=== PATIENT | female | born 2000 | race Hispanic/Latino ===

== ENCOUNTER 2022-05-15 18:14 | Emergency (ER) | payer OTHER ==
[2022-05-15] MEDS ORDERED: ACETAMINOPHEN 500 MG TAB ONE (19:08)
--- NOTE | 2022-05-15 20:02 | RAD REPORT ---
EXAM DESCRIPTION: US - Transvaginal OB - 05/15/2022 7:49 pm CLINICAL HISTORY: with abdominal pain COMPARISON: None. FINDINGS: The uterus measures 9 x 4 x 5 centimeters. A gestational sac is present within the uterine body endometrium measuring 1 centimeter. Within this is a yolk sac 6 millimeter echogenic structure is equivocal for a pole. Cardiac activity was not demonstrated . Neither ovary is visualized secondary to overlying bowel gas. The right and left adnexa unremarkable No significant free fluid IMPRESSION: Intrauterine with an estimated gestational age 6 weeks 0 days AMBER 01/08/2023 The gestational sac is somewhat low within the uterus as it is within the uterine body. There is an e quivocal pole. Cardiac activity not seen. This may represent an incomplete . It is still possible that this represents a viable in which cardiac activity not seen secon divya to the early gestation It is recommended that the patient have serial beta HCG levels as well as a follow up endovaginal son ogram in 1 week for re-evaluation
[2022-05-15 20:39] LABS: Absolute Lymphocytes (CBC) 1.9 K/uL (0.7-4.9); Hematocrit 39.8 % (36.0-45.0); Lymphocytes % 18.4 % (15.3-44.8); MCV 84.7 fL (80-100); MPV 7.7 fL (7.6-11.3); RBC Red Blood Cell Count 4.69 M/uL (3.86-4.86)
[2022-05-15 21:06] LABS: Potassium 3.3 mmol/L (3.5-5.1)
[2022-05-15 21:28] LABS: Urine Blood 3+ (Negative); Urine Glucose Negative (Negative); Urine Protein 1+ (Negative); Urine Specific Gravity >=1.030 (1.005-1.030)
[2022-05-15] MEDS ORDERED: POTASSIUM 25 MEQ EFFERV TAB ONE (22:26)
--- NOTE | 2022-05-15 22:31 | EDPHYS ---
Physician Documentation [facility] Name: Niki Casillas Age: 21 yrs Sex: Female : 2000 Arrival Date: 05/15/2022 Time: 18:16 Bed 30 Private MD: ED Physician Jesus Arana HPI: 05/15 18:40 This 21 yrs old Female presents to ER via Ambulatory with complaints of cp Vaginal Bleeding, + Preg <12wks. 18:40 The patient presents to the emergency department with vaginal bleeding, that is light, cp with no clots. 18:40 The estimated gestational age is 8 weeks. course: care: none, cp Leakage of Fluid: none appreciated, Ultrasound: the patient has not had an ultrasound. Associated signs and symptoms: Pertinent negatives: abdominal pain, fever, nausea, ruptured membranes, vomiting. 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 - Social history:: Smoking status: Patient denies any tobacco usage or history of. ROS: 18:45 Constitutional: Negative for body aches, chills, fever, poor PO intake. cp 18:45 Eyes: Negative for injury, pain, redness, and discharge. cp 18:45 ENT: Negative for drainage from ear(s), ear pain, sore throat, difficulty swallowing, difficulty handling secretions. 18:45 Cardiovascular: Negative for chest pain, edema, palpitations. 18:45 Respiratory: Negative for cough, shortness of breath, wheezing. 18:45 Abdomen/GI: Negative for abdominal pain, nausea, vomiting, and diarrhea. 18:45 Back: Negative for pain at rest, pain with movement. 18:45 : Positive for vaginal bleeding, Negative for urinary symptoms, pelvic pain, flank pain. 18:45 Neuro: Negative for altered mental status, headache, weakness. 18:45 All other systems are negative. Exam: 18:50 Constitutional: The patient appears in no acute distress, alert, awake, comfortable, cp non-toxic, well developed, well nourished. 18:50 Head/Face: Normocephalic, atraumatic. cp 18:50 Eyes: Periorbital structures: appear normal, Conjunctiva: normal, no exudate, no injection, Sclera: no appreciated abnormality, Lids and lashes: appear normal, bilaterally. 18:50 ENT: External ear(s): are unremarkable, Nose: is normal, Mouth: is normal, Posterior pharynx: Airway: no evidence of obstruction, patent. 18:50 Chest/axilla: Inspection: normal. 18:50 Cardiovascular: Rate: normal, Rhythm: regular. 18:50 Respiratory: the patient does not display signs of respiratory distress, Respirations: normal, no use of accessory muscles, no retractions, labored breathing, is not present, Breath sounds: are clear throughout, no decreased breath sounds, no stridor, no wheezing. 18:50 Abdomen/GI: Inspection: abdomen appears normal, Palpation: abdomen is soft and non-tender, in all quadrants. 18:50 Back: pain, is absent, ROM is normal. 18:50 Neuro: Orientation: to person, place \T\ time. Mentation: is normal, Motor: moves all fours, strength is normal, Gait: is steady, at a normal pace, without difficulty. Vital Signs: 18:20 BP 130 / 83; Pulse 91; Resp 16; Temp 98; Pulse Ox 100% on R/A; Weight 79.38 kg; Height hb 5 ft. 4 in. (162.56 cm); Pain 3/10; 22:35 BP 128 / 78; Pulse 82; Resp 18; Pulse Ox 99% ; kb3 18:20 Body Mass Index 30.04 (79.38 kg, 162.56 cm) hb MDM: 18:31 Patient medically screened. cp 22:30 Data reviewed: vital signs, nurses notes, lab test result(s), radiologic studies, cp ultrasound. 22:30 Counseling: I had a detailed discussion with the patient and/or guardian regarding: the cp historical points, exam findings, and any diagnostic results supporting the discharge/admit diagnosis, lab results, radiology results, the need for outpatient follow up, for definitive care, an OB/Gyne specialist, to return to the emergency department if symptoms worsen or persist or if there are any questions or concerns that arise at home. ED course: VSS. Discussed today's lab and US results indicating early 6 week vs early miscarriage. Patient has appt with OB Tuesday and can repeat beta-hcg. Recommend pelvic rest, return to ED worsening bleeding, pain. 05/15 18:32 Order name: Abo/rh Typing; Complete Time: 21:55 05/15 21:55 Interpretation: ABO/RH TYPE <p>O POSITIVE</p>; Reviewed. 05/15 18:32 Order name: Basic Metabolic Panel; Complete Time: 21:55 05/15 21:55 Interpretation: Normal except: K 3.3. 05/15 18:32 Order name: CBC with Diff; Complete Time: 21:01 05/15 21:01 Interpretation: Reviewed. 05/15 18:32 Order name: Quantitative Hcg; Complete Time: 21:55 05/15 21:55 Interpretation: Abnormal: HCGQ 7836. 05/15 21:28 Order name: Urine Dipstick-Ancillary; Complete Time: 21:55 EDGA 05/15 18:32 Order name: IV Saline Lock; Complete Time: 20:22 05/15 18:32 Order name: Labs collected and sent; Complete Time: 20:22 05/15 18:32 Order name: NPO; Complete Time: 20:22 05/15 18:32 Order name: Urine Dipstick-Ancillary (obtain specimen); Complete Time: 21:33 05/15 18:32 Order name: Urine Test (obtain specimen); Complete Time: 21:33 05/15 18:32 Order name: US Transvaginal Ob; Complete Time: 20:16 05/15 20:17 Interpretation: Report reviewed. cp Administered Medications: 18:55 Drug: Tylenol 1000 mg Route: PO; kb3 20:00 Follow up: Response: No adverse reaction; Pain is decreased kb3 22:20 Drug: Potassium Effervescent Tablet 25 mEq Route: PO; kb3 22:45 Follow up: Response: No adverse reaction kb3 Disposition Summary: 05/15/22 22:30 Discharge Ordered Location: Home cp Problem: new cp Symptoms: have improved cp Condition: Stable cp Diagnosis - Threatened cp Followup: cp - With: Private Physician - When: 48 Hours - Reason: Repeat Beta-HCG (48 Hours) Discharge Instructions: - Discharge Summary Sheet cp - Care cp - Threatened Miscarriage cp - Vaginal Bleeding During , First Trimester cp - Activity Restriction During cp Forms: - Medication Reconciliation Form cp - Thank You Letter cp - Antibiotic Education cp - Prescription Opioid Use cp Signatures: Dispatcher [employer] EDMS Jesus Hernandez PA PA cp Baxter, Heather, RN RN Trish Julian RN RN kb3
--- NOTE | 2022-05-15 22:31 | ER ---
Nurse's Notes [facility] Name: Niki Casillas Age: 21 yrs Sex: Female : 2000 Arrival Date: 05/15/2022 Time: 18:16 Bed 30 Private MD: Diagnosis: Threatened Presentation: 05/15 18:20 Chief complaint: Spotty bright red vaginal bleeding x 2 days. Pt is 8 weeks , hb LMP 02/10. Coronavirus screen: At this time, the client does not indicate any symptoms associated with coronavirus-19. Ebola Screen: No symptoms or risks identified at this time. Risk Assessment: Do you want to hurt yourself or someone else? Patient reports no desire to harm self or others. Onset of symptoms was May 14, 2022. 18:20 Method Of Arrival: Ambulatory hb 18:20 Acuity: CLARISSE 3 hb 22:21 Initial Sepsis Screen: Does the patient meet any 2 criteria? No. Patient's initial kb3 sepsis screen is negative. Does the patient have a suspected source of infection? No. Patient's initial sepsis screen is negative. Triage Assessment: 22:21 General: Appears in no apparent distress. Behavior is calm, cooperative. 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 - Social history:: Smoking status: Patient denies any tobacco usage or history of. Screenin:45 Abuse screen: Denies threats or abuse. Denies injuries from another. Nutritional kb3 screening: No deficits noted. Tuberculosis screening: No symptoms or risk factors identified. Fall Risk None identified. Assessment: 18:45 Obstetrical Assessment: General assessment: awake and alert, anxious, skin warm and kb3 dry, respirations even and unlabored. General: Appears in no apparent distress. Behavior is Received care of pt from triage. PT is AAO x4. Reports bright red bleeding since yesterday with mild lower abdominal cramping. PT states she has been having cramping since she found out she was but the bleeding is new. Reports one episode of scant spotting over Labor Day weekend but nothing since then. A0. 18:45 Pain: Complains of pain in right lower quadrant and left lower quadrant Pain does not kb3 radiate. Pain currently is 2 out of 10 on a pain scale. Quality of pain is described as crampy. : No deficits noted. No signs and/or symptoms were reported regarding the genitourinary system. 19:20 General: US Tech at bedside. kb3 Vital Signs: 18:20 BP 130 / 83; Pulse 91; Resp 16; Temp 98; Pulse Ox 100% on R/A; Weight 79.38 kg; Height hb 5 ft. 4 in. (162.56 cm); Pain 3/10; 22:35 BP 128 / 78; Pulse 82; Resp 18; Pulse Ox 99% ; kb3 18:20 Body Mass Index 30.04 (79.38 kg, 162.56 cm) hb Vitals: 22:22 Heart Tones No cardiac activity per US. kb3 ED Course: 18:16 Patient arrived in ED. as 18:22 Triage completed. hb 18:22 Arm band placed on. hb 18:26 Jesus Hernandez PA is PHCP. cp 18:26 Josephine Loaiza MD is Attending Physician. cp 18:34 Trish Julian, RN is Primary Nurse. kb3 18:45 Patient has correct armband on for positive identification. Placed in gown. Bed in low kb3 position. Call light in reach. Side rails up X 1. Warm blanket given. 18:45 No provider procedures requiring assistance completed. kb3 19:50 US Transvaginal Ob In Process Unspecified. EDMS 20:20 Inserted saline lock: 22 gauge in right antecubital area, using aseptic technique. hb Blood collected. 20:23 Jesus Arana MD is Attending Physician. cp 22:44 IV discontinued, intact, bleeding controlled, No redness/swelling at site. kb3 Administered Medications: 18:55 Drug: Tylenol 1000 mg Route: PO; kb3 20:00 Follow up: Response: No adverse reaction; Pain is decreased kb3 22:20 Drug: Potassium Effervescent Tablet 25 mEq Route: PO; kb3 22:45 Follow up: Response: No adverse reaction kb3 Medication: 18:45 VIS not applicable for this client. kb3 Outcome: 22:30 Discharge ordered by . scott 22:44 Discharged to home ambulatory. kb3 22:44 Condition: stable 22:44 Discharge instructions given to patient, Instructed on discharge instructions, follow up and referral plans. Demonstrated understanding of instructions, follow-up care. 22:46 Patient left the ED. kb3 Signatures: Dispatcher [employer] EDCarrie Smalls Corey, PA PA cp Baxter, Heather, RN RN Trish Garcia, RN RN kb3
[2022-05-17 09:06] VITALS: TEMP 98
[2022-05-17 09:10] VITALS: BP 128/78; O2SAT 99
== END 2022-05-15 22:46 | disposition home or self-care (01) ==
LOC: ER 18:14
DX: O20.0 Threatened abortion (principal)
CPT/HCPCS: 36415; 76817; 80048; 81003; 84702; 85025; 86900; 86901; 99284